=== PATIENT | female | born 1970 | race Caucasian/White ===

== ENCOUNTER 2017-06-30 10:24 | Emergency (ER) | payer OTHER ==
[~2017-06-30] VITALS: Ht 165.1 cm; Wt 82.0 kg
[~2017-06-30 10:24] MED LIST: ALBU0.086 NEB; ALBU8I INH; SYNT88TA PO
[2017-06-30 10:26] VITALS: BP 119/65; PULSE 113; RESP 22; TEMP 99.8; O2SAT 99
[2017-06-30 10:45] VITALS: BP 118/73; PULSE 108; RESP 17
[2017-06-30 10:50] VITALS: O2SAT 98
--- NOTE | 2017-06-30 10:54 | PD ---
HPI Chief Complaint: Cold / Flu Symptoms Time Seen by Provider: 10:53 Travel History International Travel<30 days: No Contact w/Intl Traveler<30days: No Traveled to known affect area: No History of Present Illness HPI 47-year-old female with history of asthma and bronchospasms, presents to emergency department for evaluation of substernal chest pain intermittently occurring over the last 2 weeks. 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 It does not radiate anywhere. She also reports persistent shortness of breath sensation. She states that she does not feel like she is gasping for air but cannot get in entire breath. Inspiration is also painful. Patient states she went to urgent care on Monday of this week and an EKG was complete and she was told that it was "abnormal." She was waiting to get into her primary care provider's office however the pain returned today, she also was feeling nauseous and overall not well so she decided to come to the emergency department for further evaluation. Patient currently rates her pain a 2 out of 10. She also is reporting posterior left lower extremity pain described as a cramping that has also persisted over the last 2 weeks. She has no history of DVT or PE. She has no self-reported cardiac history. She has no other symptoms to report at this time. [facility] Past Medical History Asthma: Yes Cancer: No Diabetes: No Glaucoma: No Hepatitis: No Hiatal Hernia: No Hypertension: No Respiratory: Yes (ASTHMA) Immunizations Current: Yes Thyroid Disease: Yes ?: Not Para: 1 Past Surgical History Gynecologic Surgery: Yes (LAPAROSCOPIES, HYSTEROSCOPIES) Oral Surgery: Yes (TRACHEOTOMY AT 4 YEARS OLD) Pacemaker: No Thoracic Surgery: Yes (TRACHIOTOMY AT 4YRS) Other Surgery: Yes (epiglotittis) Social History Alcohol Use: No Tobacco Use: No Substance Use: No Allergies-Medications (Allergen,Severity, Reaction): Coded Allergies: alprazolam (Unverified Allergy, Severe, fainting, 01/10/17) cefepime (Unverified Allergy, Severe, nausea and vomiting, 01/10/17) ceftaroline fosamil (Unverified Allergy, Severe, nausea and vomiting, 01/10) penicillin G (Unverified Allergy, Unknown, 01/10/17) Reported Meds & Prescriptions Reported Meds & Active Scripts Active Reported Ventolin Hfa (Albuterol Sulfate) 8 Gm Aero 2 Puff INH Q6HR PRN * SHAKE WELL BEFORE USE * Proventil Ud 0.083% (2.5 Mg/3 Ml) (Albuterol Sulfate) 2.5 Mg/3 Ml Inha 2.5 Mg NEB Q4HR PRN Synthroid 88 mcg (Levothyroxine Sodium) 88 Mcg Tab 88 Mcg PO TAKE ON AN EMPTY STOMACH Review of Systems Except as stated in HPI: all other systems reviewed are Neg Physical Exam Narrative GENERAL: Well-nourished female patient, sitting in bed, nontoxic appearing and in no acute distress. SKIN: Focused skin assessment warm/dry. HEAD: Atraumatic. Normocephalic. EYES: Pupils equal and round. No scleral icterus. No injection or drainage. ENT: No nasal bleeding or discharge. Mucous membranes pink and moist. NECK: Trachea midline. No JVD. CARDIOVASCULAR: Tachycardic rate and rhythm. No murmur appreciated. RESPIRATORY: No accessory muscle use. Clear to auscultation, diminished bases. Breath sounds equal bilaterally. GASTROINTESTINAL: Abdomen soft, non-tender, nondistended. Hepatic and splenic margins not palpable. MUSCULOSKELETAL: No obvious deformities. No clubbing. No cyanosis. No edema. No asymmetry NEUROLOGICAL: Awake and alert. No obvious cranial nerve deficits. Motor grossly within normal limits. Normal speech. PSYCHIATRIC: Appropriate mood and affect; insight and judgment normal. Data Data Last Documented VS Vital Signs Date Time Temp Pulse Resp B/P (MAP) Pulse Ox O2 Delivery O2 Flow Rate FiO2 06/30/17 10:45 108 17 118/73 (88) 06/30/17 10:26 99.8 99 Room Air Orders Orders Electrocardiogram (06/30/17 ) Electrocardiogram (06/30/17 11:01) Basic Metabolic Panel (Bmp) (06/30/17 11:01) Ckmb (Isoenzyme) Profile (06/30/17 11:01) Complete Blood Count With Diff (06/30/17 11:01) D-Dimer (06/30/17 11:01) Magnesium (Mg) (06/30/17 11:01) Prothrombin Time / Inr (Pt) (06/30/17 11:01) Act Partial Throm Time (Ptt) (06/30/17 11:01) Troponin I (06/30/17 11:01) Lipase (06/30/17 11:01) Chest, Single Ap (06/30/17 11:01) Ecg Monitoring (06/30/17 11:01) Bilateral Bp Monitoring (06/30/17 11:01) Iv Access Insert/Monitor (06/30/17 11:01) Oximetry (06/30/17 11:01) Oxygen Administration (06/30/17 11:01) Aspirin Chew (Aspirin Chew) (06/30/17 11:15) Sodium Chloride 0.9% Flush (Ns Flush) (06/30/17 11:15) Sodium Chlorid 0.9% 500 Ml Inj (Ns 500 M (06/30/17 11:15) Influenzae A/B Antigen (06/30/17 11:01) Ed Discharge Order (06/30/17 12:13) Al-Mag Hy-Si 40-40-4 Mg/Ml Liq (Mag-Al P (06/30/17 12:30) Lidocaine 2% Viscous (Xylocaine 2% Visco (06/30/17 12:30) Labs Laboratory Tests Test 06/30/17 10:50 White Blood Count 6.1 TH/MM3 Red Blood Count 4.32 MIL/MM3 Hemoglobin 13.2 GM/DL Hematocrit 38.5 % Mean Corpuscular Volume 89.1 FL Mean Corpuscular Hemoglobin 30.6 PG Mean Corpuscular Hemoglobin Concent 34.3 % Red Cell Distribution Width 13.3 % Platelet Count 182 TH/MM3 Mean Platelet Volume 7.7 FL Neutrophils (%) (Auto) 84.5 % Lymphocytes (%) (Auto) 5.9 % Monocytes (%) (Auto) 7.9 % Eosinophils (%) (Auto) 1.2 % Basophils (%) (Auto) 0.5 % Neutrophils # (Auto) 5.1 TH/MM3 Lymphocytes # (Auto) 0.4 TH/MM3 Monocytes # (Auto) 0.5 TH/MM3 Eosinophils # (Auto) 0.1 TH/MM3 Basophils # (Auto) 0.0 TH/MM3 CBC Comment DIFF FINAL Differential Comment Prothrombin Time 9.8 SEC Prothromb Time International Ratio 1.0 RATIO Activated Partial Thromboplast Time 26.8 SEC D-Dimer Quantitative (PE/DVT) 0.49 MG/L FEU Blood Urea Nitrogen 7 MG/DL Creatinine 0.75 MG/DL Random Glucose 97 MG/DL Calcium Level 9.0 MG/DL Magnesium Level 2.0 MG/DL Sodium Level 138 MEQ/L Potassium Level 3.8 MEQ/L Chloride Level 103 MEQ/L Carbon Dioxide Level 27.4 MEQ/L Anion Gap 8 MEQ/L Estimat Glomerular Filtration Rate 84 ML/MIN Total Creatine Kinase 97 U/L Troponin I LESS THAN 0.02 NG/ML Lipase 148 U/L MDM Medical Decision Making Medical Screen Exam Complete: Yes Emergency Medical Condition: Yes Medical Record Reviewed: Yes Differential Diagnosis ACS versus bronchospasm versus indigestion versus pneumonia versus influenza versus PE Narrative Course 47-year-old female presents to emergency department for evaluation. Patient appears without distress. She is persistently tachycardic in the low 100s. It is painful for her to take a deep breath and breath sounds are diminished in the bases. I discussed patient with my attending physician. Cardiac workup will be initiated. I'll include a d-dimer as well. Patient is given 160 mg aspirin by mouth. Laboratory Tests Test 06/30/17 10:50 White Blood Count 6.1 TH/MM3 Red Blood Count 4.32 MIL/MM3 Hemoglobin 13.2 GM/DL Hematocrit 38.5 % Mean Corpuscular Volume 89.1 FL Mean Corpuscular Hemoglobin 30.6 PG Mean Corpuscular Hemoglobin Concent 34.3 % Red Cell Distribution Width 13.3 % Platelet Count 182 TH/MM3 Mean Platelet Volume 7.7 FL Neutrophils (%) (Auto) 84.5 % Lymphocytes (%) (Auto) 5.9 % Monocytes (%) (Auto) 7.9 % Eosinophils (%) (Auto) 1.2 % Basophils (%) (Auto) 0.5 % Neutrophils # (Auto) 5.1 TH/MM3 Lymphocytes # (Auto) 0.4 TH/MM3 Monocytes # (Auto) 0.5 TH/MM3 Eosinophils # (Auto) 0.1 TH/MM3 Basophils # (Auto) 0.0 TH/MM3 CBC Comment DIFF FINAL Differential Comment Prothrombin Time 9.8 SEC Prothromb Time International Ratio 1.0 RATIO Activated Partial Thromboplast Time 26.8 SEC D-Dimer Quantitative (PE/DVT) 0.49 MG/L FEU Blood Urea Nitrogen 7 MG/DL Creatinine 0.75 MG/DL Random Glucose 97 MG/DL Calcium Level 9.0 MG/DL Magnesium Level 2.0 MG/DL Sodium Level 138 MEQ/L Potassium Level 3.8 MEQ/L Chloride Level 103 MEQ/L Carbon Dioxide Level 27.4 MEQ/L Anion Gap 8 MEQ/L Estimat Glomerular Filtration Rate 84 ML/MIN Total Creatine Kinase 97 U/L Troponin I LESS THAN 0.02 NG/ML Lipase 148 U/L Last Impressions Chest X-Ray 06/30/17 1101 Signed Impressions: Service Date/Time: Friday, June 30, 2017 11:23 - CONCLUSION: Mild discoid atelectasis now noted in the right lung base.. There is no evidence of pneumonia. Daniel Reed MD Lab work is reviewed and without acute concern; ddimer is 0.49; troponin is 0.02. Findings are discussed with the patient in my attending physician as well. Patient will be discharged home. She has appointment on Monday to follow-up with her primary care provider. I advised her to keep this appointment. She agrees return immediately with any acute worsening of symptoms. Diagnosis Primary Impression: Chest pain of unknown etiology Additional Impression: Flu-like symptoms Referrals: Primary Care Physician Patient Instructions: Chest Pain (ED), General Instructions, Influenza (ED) Departure Forms: Tests/Procedures, Work Release Enter return to work date: Jul 02, 2017 Additional Instructions: Rest Maintain adequate oral hydration Follow-up with your primary care provider. Keep your appointment for Monday Return immediately to the emergency department with any acute worsening of symptoms Med/Other Pt SpecificInfo: No Change to Meds Disposition: 01 DISCHARGE HOME Condition: Stable Lauren Gibson Jun 30, 2017 10:54
[2017-06-30] MEDS ORDERED: SODIUM CHLORID 0.9% 500 ML INJ 500 ML IV ONE (11:15)
[2017-06-30] MEDS ORDERED: ASPIRIN 81 MG CHEW TAB PO ONE (11:15)
[2017-06-30] MEDS ORDERED: SODIUM CHLORIDE 0.9% FLUSH 10 ML FLUSH IVF PRN (11:15)
[2017-06-30 11:38] LABS: AUTOMATED NEUTROPHIL # 5.1 TH/MM3 (1.8-7.7); BASOPHIL % 0.5 % (0.0-2.0); EOSINOPHIL # 0.1 TH/MM3 (0-0.4); EOSINOPHIL % 1.2 % (0.0-4.0); HEMATOCRIT 38.5 % (35.0-46.0); HEMOGLOBIN 13.2 GM/DL (11.6-15.3); LYMPH % 5.9 % (9.0-44.0); LYMPHOCYTE # 0.4 TH/MM3 (1.0-4.8); MEAN CELL VOLUME 89.1 FL (80.0-100.0); MEAN CORPUSCULAR HEMOGLOBIN 30.6 PG (27.0-34.0); MEAN CORPUSCULAR HGB CONC 34.3 % (32.0-36.0); MEAN PLATELET VOLUME 7.7 FL (7.0-11.0); MONO % 7.9 % (0.0-8.0); MONOCYTE # 0.5 TH/MM3 (0-0.9); NEUT % 84.5 % (16.0-70.0); PLATELET COUNT 182 TH/MM3 (150-450); RED BLOOD COUNT 4.32 MIL/MM3 (4.00-5.30); RED CELL DISTRIBUTION WIDTH 13.3 % (11.6-17.2); WHITE BLOOD COUNT 6.1 TH/MM3 (4.0-11.0)
--- NOTE | 2017-06-30 11:42 | RADRPT ---
EXAM DATE/TIME: 06/30/2017 11:23 [facility] COMPARISON: CHEST SINGLE AP, August 03, 2015, 11:29. INDICATIONS : Chest pain. MEDICAL HISTORY : Bronchospasm from asthma SURGICAL HISTORY : tracheostomy at 4 yrs of age. ENCOUNTER: Initial ACUITY: 2 weeks PAIN SCORE: 5/10 LOCATION: Bilateral chest FINDINGS: A single view of the chest demonstrates the lungs to be symmetrically aerated without evidence of mas s, infiltrate or effusion. There is mild discoid atelectasis now noted at the right lung base. The ca rdiomediastinal contours are unremarkable. Osseous structures are intact. CONCLUSION: Mild discoid atelectasis now noted in the right lung base.. There is no evidence of pneumonia. Daniel Reed MD on June 30, 2017 at 11:39 Board Certified Radiologist. This report was verified electronically.
[2017-06-30 11:50] LABS: BICARBONATE 27.4 MEQ/L (21.0-32.0); BLOOD UREA NITROGEN 7 MG/DL (7-18); CHLORIDE 103 MEQ/L (98-107); CREATININE 0.75 MG/DL (0.50-1.00); GLOMERULAR FILTRATION RATE 84 ML/MIN (>89); GLUCOSE,RANDOM 97 MG/DL (74-106); SODIUM (NA) 138 MEQ/L (136-145)
[2017-06-30 11:54] LABS: TROPONIN I LESS THAN 0.02 NG/ML (0.02-0.05)
[2017-06-30 11:57] LABS: D-DIMER 0.49 MG/L FEU (0.00-0.50); PROTHROMBIN TIME - PATIENT 9.8 SEC (9.8-11.6)
--- NOTE | 2017-06-30 12:17 | PD ---
Data Data Last Documented VS Vital Signs Date Time Temp Pulse Resp B/P (MAP) Pulse Ox O2 Delivery O2 Flow Rate FiO2 06/30/17 10:45 108 17 118/73 (88) 06/30/17 10:26 99.8 99 Room Air Orders Orders Electrocardiogram (06/30/17 ) Electrocardiogram (06/30/17 11:01) Basic Metabolic Panel (Bmp) (06/30/17 11:01) Ckmb (Isoenzyme) Profile (06/30/17 11:01) Complete Blood Count With Diff (06/30/17 11:01) D-Dimer (06/30/17 11:01) Magnesium (Mg) (06/30/17 11:01) Prothrombin Time / Inr (Pt) (06/30/17 11:01) Act Partial Throm Time (Ptt) (06/30/17 11:01) Troponin I (06/30/17 11:01) Lipase (06/30/17 11:01) Chest, Single Ap (06/30/17 11:01) Ecg Monitoring (06/30/17 11:01) Bilateral Bp Monitoring (06/30/17 11:01) Iv Access Insert/Monitor (06/30/17 11:01) Oximetry (06/30/17 11:01) Oxygen Administration (06/30/17 11:01) Aspirin Chew (Aspirin Chew) (06/30/17 11:15) Sodium Chloride 0.9% Flush (Ns Flush) (06/30/17 11:15) Sodium Chlorid 0.9% 500 Ml Inj (Ns 500 M (06/30/17 11:15) Influenzae A/B Antigen (06/30/17 11:01) Ed Discharge Order (06/30/17 12:13) Labs Laboratory Tests Test 06/30/17 10:50 White Blood Count 6.1 TH/MM3 Red Blood Count 4.32 MIL/MM3 Hemoglobin 13.2 GM/DL Hematocrit 38.5 % Mean Corpuscular Volume 89.1 FL Mean Corpuscular Hemoglobin 30.6 PG Mean Corpuscular Hemoglobin Concent 34.3 % Red Cell Distribution Width 13.3 % Platelet Count 182 TH/MM3 Mean Platelet Volume 7.7 FL Neutrophils (%) (Auto) 84.5 % Lymphocytes (%) (Auto) 5.9 % Monocytes (%) (Auto) 7.9 % Eosinophils (%) (Auto) 1.2 % Basophils (%) (Auto) 0.5 % Neutrophils # (Auto) 5.1 TH/MM3 Lymphocytes # (Auto) 0.4 TH/MM3 Monocytes # (Auto) 0.5 TH/MM3 Eosinophils # (Auto) 0.1 TH/MM3 Basophils # (Auto) 0.0 TH/MM3 CBC Comment DIFF FINAL Differential Comment Prothrombin Time 9.8 SEC Prothromb Time International Ratio 1.0 RATIO Activated Partial Thromboplast Time 26.8 SEC D-Dimer Quantitative (PE/DVT) 0.49 MG/L FEU Blood Urea Nitrogen 7 MG/DL Creatinine 0.75 MG/DL Random Glucose 97 MG/DL Calcium Level 9.0 MG/DL Magnesium Level 2.0 MG/DL Sodium Level 138 MEQ/L Potassium Level 3.8 MEQ/L Chloride Level 103 MEQ/L Carbon Dioxide Level 27.4 MEQ/L Anion Gap 8 MEQ/L Estimat Glomerular Filtration Rate 84 ML/MIN Total Creatine Kinase 97 U/L Troponin I LESS THAN 0.02 NG/ML Lipase 148 U/L MDM Supervised Visit with [facility]: Yes Narrative Course The history, exam, and medical decision-making in the associated mid-level provider note were completed with my assistance. I reviewed and agree with the findings presented. I attest that I had a [id number] encounter with the patient on the same day, and personally performed and documented my assessment and findings in the medical record. *My assessment and Findings: 47-year-old woman, presents with intermittent chest pain times weeks, call cold flu symptoms of fever for the past day or 2, some cramping in her left leg but no obvious evidence of DVT. There is no swelling or asymmetry that I can appreciate. D-dimers below 0.5. Remainder workups unremarkable. I do not think she is having an acute coronary syndrome. Reviewed EKG. Recommend outpatient follow-up. Condition: Stable Vidal Garner MD Jun 30, 2017 12:17
[2017-06-30] MEDS ORDERED: ALUMINUM/MAGNESIUM/SIMETH 30 ML CUP PO ONE (12:30)
[2017-06-30] MEDS ORDERED: LIDOCAINE VISCOUS 2% SOLN 15 ML UDC PO ONE (12:30)
[2017-06-30 12:55] VITALS: BP 163/79; PULSE 77; RESP 17; O2SAT 98
[2017-06-30] MEDS ORDERED: ONDANSETRON HCL 4 MG/2 ML VIAL IV PUSH ONE (13:15)
[2017-06-30 14:08] VITALS: BP 160/83
--- NOTE | 2017-06-30 18:59 | EKG ---
Date Performed: 06/30/2017 Time Performed: 10:50:25 PTAGE: 47 years EKG: Sinus rhythm NORMAL ECG NO PREVIOUS TRACING DOCTOR: Salas Zamora Interpretating Date/Time 06/30/2017 18:58:56
== END 2017-06-30 14:09 | disposition home or self-care (01) ==
LOC: NEPE 10:24
DX: R07.9 Chest pain, unspecified (principal); J45.909 Unspecified asthma, uncomplicated; Z88.0 Allergy status to penicillin; Z88.8 Allergy status to other drugs, medicaments and biological substances; Z79.899 Other long term (current) drug therapy
CPT/HCPCS: 71045; 80048; 82550; 83690; 83735; 84484; 85025; 85379; 85610; 85730; 87804; 93005; 96361; 96374; 99285; J2405; J7040